=== PATIENT | female | born 1970 | race Caucasian/White ===

== ENCOUNTER 2016-08-18 10:28 | Day surgery (SDC) | payer BC ==
[2016-08-15 12:20] VITALS: BMI 24.2
[~2016-08-18] VITALS: Ht 167.6 cm; Wt 68.1 kg
[2016-08-18] VITALS (14 sets, daily range): BP systolic 100–119; BP diastolic 49–61; PULSE 55–86; RESP 16–20; Ht 167.6 cm; Wt 68.1 kg
--- NOTE | 2016-08-18 09:38 | PREOPHP ---
DATE OF ADMISSION: 08/18/2016 HISTORY OF PRESENT ILLNESS: The patient is a 45-year-old 4, para 2, AB 2, with menorrhagia and submucosal fibroid or polyp seen on ultrasound. Here for resection of the fibroid. We did an endometrial biopsy a year ago which showed benign tissue. The patient has surgical menopause as she had her ovaries removed and is on estrogen; however, we have tried multiple different progesterone and she has been unable to take any of them without causing bleeding. We were hoping that removal of the fibroid will provide resolution of the irregular bleeding. The patient has had the fibroid for a couple of years but whenever it is seen on a scan done for her orthopedic issues the person reading the scan scares her telling her she has a tumor that needs to be taken care of. PAST SURGICAL HISTORY: Surgical menopause and she had a fall in 2011 downstairs at work with multiple surgeries and pain involving her right foot and ankle since then. PAST SURGICAL HISTORY: Two previous C-sections, two D and C, laparoscopic BSO in 2012 for the right dermoid and then the multiple right foot and ankle surgeries after her fall. ALLERGIES: NO KNOWN DRUG ALLERGY. PHYSICAL EXAMINATION: VITAL SIGNS: Patient is 66 inches tall, 150 pounds, blood pressure 118/80. HEART: Regular rate and rhythm. LUNGS: Clear to auscultation. ABDOMEN: Soft, nontender. PELVIC: Uterus normal size. Adnexa, no masses palpable. Ovaries absent. MEDICATIONS: She is on: 1. Dexilant. 2. Benadryl. 3. Estradiol 0.1 patch that she changes twice a week. 4. Lidoderm patch. 5. History of pain medication for significant pain issues due to her fall OxyContin. 6. [place]. ASSESSMENT: Postmenopausal menorrhagia with progesterone, submucosal fibroid. PLAN: Hysteroscopy with resection of submucosal fibroid. Dictated By: NICOLE HANEY/JOSE Conf#: [id number] DID#: [id number] MTDD
[~2016-08-18 10:28] MED LIST: LACTATED RINGER'S 1,000 ML IV SCH; ONDANSETRON 4 MG INJ ONE; TOPI25TA38 PO
[2016-08-18 11:48] LABS: BASOPHILS % 0.6 % (0.0-2.0); EOSINOPHILS # 0.1 10^3/ul (0.0-0.5); EOSINOPHILS % 1.8 % (0.0-7.0); HEMATOCRIT 44.7 % (37.0-47.0); HEMOGLOBIN 15.1 g/dl (12.0-16.0); LYMPHOCYTES # 1.8 10^3/ul (0.8-2.9); LYMPHOCYTES % 30.9 % (15.0-51.0); MEAN CORPUSCULAR HEMOGLOBIN 29.2 pg (29.0-33.0); MEAN CORPUSCULAR HGB CONC 33.9 g/dl (32.0-37.0); MEAN CORPUSCULAR VOLUME 86.2 fl (82.0-101.0); MEAN PLATELET VOLUME 8.5 fl (7.4-10.4); MONOCYTE # 0.4 10^3/ul (0.3-0.9); MONOCYTES % 6.4 % (0.0-11.0); NEUTROPHIL # 3.6 10^3/ul (1.6-7.5); NEUTROPHILS % 60.3 % (39.0-77.0); PLATELET COUNT 302 10^3/UL (140-440); RED BLOOD COUNT 5.19 10^6/ul (4.20-5.40); RED CELL DISTRIBUTION WIDTH 13.9 % (11.5-14.5)
[2016-08-18] MEDS ORDERED: PROPOFOL 40 ML ONE (11:50)
[2016-08-18] MEDS ORDERED: LIDOCAINE 2% (SDV) 5 ML INJ ONE (11:50)
[2016-08-18 11:53] LABS: INR 0.91; PROTIME 12.3 Sec (12.2-14.2)
[2016-08-18] MEDS ORDERED: FENTAnyl 50 MCG/ML VIAL ONE ×3 (11:53→14:36)
[2016-08-18] MEDS ORDERED: MIDAZOLAM 1 MG/ML 2 ML INJ ONE ×2 (11:53→13:28)
[2016-08-18 11:54] LABS: PARTIAL THROMBOPLASTIN TIME 30.7 Sec (25.0-35.0)
[2016-08-18] MEDS ORDERED: OXYC-431 (12:01)
[2016-08-18] MEDS ORDERED: ESTR-32 (12:01)
[2016-08-18] MEDS ORDERED: PANT40TA4 (12:01)
[2016-08-18] MEDS ORDERED: OXYC40TA26 (12:01)
[2016-08-18] MEDS ORDERED: OXYC30TA64 (12:01)
[2016-08-18 12:03] LABS: CONDITION 1
[2016-08-18] MEDS ORDERED: MEPERIDINE 25 MG INJ IV PRN (12:30)
[2016-08-18] MEDS ORDERED: ONDANSETRON 4 MG INJ IV PRN (12:30)
[2016-08-18] MEDS ORDERED: FENTAnyl 50 MCG/ML VIAL IV PRN ×3 (12:30)
[2016-08-18] MEDS ORDERED: LABETALOL HCL 20MG INJ IV PRN (12:30)
[2016-08-18] MEDS ORDERED: DEXAMETHASONE 4 MG/ML 1 ML INJ ONE (13:59)
[2016-08-18] MEDS ORDERED: PROPOFOL 20 ML ONE ×3 (14:44→15:00)
[2016-08-18] MEDS ORDERED: OXYCODONE/ACETAMINOPHEN (5/325) TAB ONE (16:00)
[2016-08-18] MEDS ORDERED: DIPHENHYDRAMINE 50 MG INJ ONE (16:00)
[2016-08-18] MEDS ORDERED: OXYCODONE/ACETAMINOPHEN (5/325) TAB PO ONE (16:30)
[2016-08-18] MEDS ORDERED: DIPHENHYDRAMINE 50 MG INJ IV ONE (16:30)
--- NOTE | 2016-08-20 01:50 | OPR ---
DATE OF OPERATION: 08/18/2016 PREOPERATIVE DIAGNOSIS: Submucosal fibroid. POSTOPERATIVE DIAGNOSIS: Submucosal fibroid. PROCEDURE: Hysteroscopy with resection of fibroid and a D and C. SURGEON: Ankit Bonds MD ANESTHESIOLOGIST: Dr. Rothman ANESTHESIA: General. ESTIMATED BLOOD LOSS: Less than 10 mL COMPLICATIONS: None. PATHOLOGY: The fibroid specimen in pieces and endometrial curettings. PROCEDURE: The patient was brought to the operating room, placed on the operating room table and was placed under general anesthesia. Before she was put to asleep, her legs were placed in Phil stirrups with her telling us what is a comfortable position for her so her legs were not open too much due to significant orthopedic issues patient has with her leg and hip. Then patient was placed under general anesthesia. Perineum and vagina were cleaned, prepped and draped. She had in-and-out catheterization in the OR. Weighted speculum was then placed. Cervix was grasped with a tenaculum. Cervix was dilated with Hegar dilators, and it took a bit to find the direction of cervical os. It went to the left, down and then back up. Then placed the hysteroscope. Initiated fluid and initially had a little trouble with orientation of the camera but sorted that out, was able to visualize the endometrial cavity with the fibroid up in the left upper corner by the tubal ostia, and then the rest of the cavity had some fluffy material in it. No other specific fibroids or polyps or lesions seen. Initiated the resection process by placing the resectoscope next to the fibroid and used a pedal to initiate the grabbing/ removal process. In between had to withdraw the resectoscope into the body of the hysteroscope while irrigating in order to maintain visualization. During the resection process when the water would get cloudy, irrigation would clarify. The process was challenging because the fibroid itself was up in the left hand corner so not easily accessible and had to constantly switch back and forth between the irrigation process and the actual procedure multiple times. Eventually the bulk of the fibroid was removed down until the tissue was smooth with the uterus. There was a little bit of tissue remaining up in the corner as it was around the corner and lying flat on the floor of the uterus and was just not able to get there. When I felt the bulk of the tissue was removed and that area was as flat as possible, then stopped that procedure. Did cauterize 1 area when there was a little bit of bleeding. Removed the hysteroscope and proceeded with a D and C to scrape all of the lateral porter. There was not that much tissue that was removed, but just wanted to make sure she would not have any irregular bleeding any time in the future and to provide another good sampling of the uterine cavity. Procedure was then terminated. Water was evacuated. Total water during the procedure 1250 mL. Two specimens, the fibroid fragments and the D and C, were sent separately to pathology for evaluation. The patient's perineum was then cleaned. Her legs were then brought into the full supine position. She was awakened from general anesthesia , and physically she tolerated the procedure well. Her hips were not so happy being in any position, and patient needed pain medication almost immediately upon awakening, more due to her orthopedic issues than the procedure. Dictated By: ANKIT HANEY/JOSE Conf#: [id number] DID#: [id number] MTDPavithra
== END 2016-08-18 17:24 | disposition home or self-care (01) ==
LOC: SDS 10:28
PROVIDERS: ATTEND Obstetrics & Gynecology
DX: D25.0 Submucous leiomyoma of uterus (principal)
CPT/HCPCS: 58558; 84703; 85025; 85610; 85730; J1100; J1200; J2175; J2250; J2405; J3010

== ENCOUNTER 2017-02-19 05:49 | Inpatient (IN) | payer BC, OTHER ==
--- NOTE | 2017-02-13 07:34 | PREOPHP ---
DATE OF ADMISSION: 02/19/2017 MEDICAL HISTORY AND PHYSICAL. The patient is to have surgery with Dr. Nick Lewis on 02/19/2017. REQUESTING PHYSICIAN: Consultation requested by Dr. Nick Lewis for medical evaluation and clearance of a 46-year-old woman about to undergo surgery. Thank you Dr. Lewis for allowing us participate in the care of this patient. HISTORY OF PRESENT ILLNESS: Linda Thurman is a 46-year-old woman who has had issues with her right hip, and had undergone arthroscopic surgery on that hip approximately a year ago. She is still having issues and is currently being admitted for a total hip replacement of the right hip. PAST SURGICAL HISTORY: Includes 2 sections, right ankle surgery x2. Also had uterine fibroid surgery, and had ovarian surgery in the past. Also has had right and left issues in terms of her ovaries. She has fractured her left arm. She has had no medical hospitalizations; however, and has been doing relatively well from a medical standpoint other than her chronic pain secondary to her hip problems. MEDICATIONS: Include oxycodone 30 mg t.i.d., muscle relaxer which is occasional use, as well as Percocet 10/325 periodically, and estrogen patch, as well as Protonix 40 mg daily. ALLERGIES: DILAUDID AND OTHER OPIATES. AND AGAIN HER HEALTH OTHER THAN HER BACK PAIN HAS BEEN RELATIVELY WELL. SOCIAL HISTORY: The patient is and has 2 sons. She smokes about a pack of cigarettes a day. She drinks alcohol socially. She does not drink coffee. She usually has no difficulty sleeping at night and currently is not working. FAMILY HISTORY: Father is alive in his late 60s, he has diabetes mellitus type 2. Mother unknown. One sister is living and well. One sister of suicide. There is a family history of diabetes, heart cancer and hypertension. No strokes to her knowledge. REVIEW OF SYSTEMS: HEENT: Periodic headaches, probably tension headaches. CARDIORESPIRATORY: Denies any chest pain, shortness of breath. GASTROINTESTINAL: No melena or hematemesis; however, does have signs of gastroesophageal reflux disease acid related symptoms. GENITOURINARY: No urgency or frequency. GYNECOLOGIC: Postmenopausal. Up-to-date with her apple checker. MUSCULOSKELETAL: Positive for right hip pain. NEUROPSYCHIATRIC: Unremarkable. CONSTITUTIONAL: General health as above. PHYSICAL EXAMINATION: VITAL SIGNS: Blood pressure was 122/80, pulse was 80 and regular, respirations were 18, temperature of 98.4, height 66 inches, weight 150 pounds. GENERAL APPEARANCE: The patient was noted to be a well-developed and well-nourished female, alert and cooperative, in no apparent acute distress, oriented to time, place and person. HEENT: Head was atraumatic. Eyes: Pupils were equal and reactive to light and accommodation. Fundi were benign. Tympanic membranes were unremarkable. Nose was negative. Mouth was unremarkable. Fair oral hygiene was present. NECK: Supple without any rigidity. Trachea is midline. Thyroid was within normal limits. Neck veins were flat. Carotid pulses were equal. No bruits were heard. BACK: Back exam was unremarkable. CHEST: Chest was symmetrical. Breast and axillary exam did not reveal any masses. LUNGS: Clear to percussion and auscultation. CARDIAC: On exam of the heart PMI is in the fifth intercostal space at the midclavicular line. Regular sinus rhythm was noted. No significant murmurs, rubs or gallops being elicited. ABDOMEN: Soft. Good bowel sounds were noted. No significant organomegaly, masses or tenderness. GENITALIA: Normal female external genitalia. Pelvic and rectal exam up-to-date per apple checker. EXTREMITIES: Did not reveal any clubbing, edema or cyanosis. Peripheral pulses were physiologic. SKIN: Moist and warm without any eruptions. No gross lymphadenopathy was noted. NEUROLOGIC: Exam was grossly intact. IMPRESSION: 1. Degenerative joint disease right hip. 2. Menopausal syndrome. 3. Gastroesophageal reflux disease. 4. Stable health. DIAGNOSTICS: Review of laboratory and other data revealed the following: The patient's chemistry panel revealed normal electrolytes, glucose, BUN, creatinine, liver function tests, magnesium, iron, and a negative test. CBC, sedimentation rate, UA, PT and PTT were normal as well. The patient's EKG was normal as was her chest x-ray. DISCUSSION: Dr. Lewis, I see no contraindications to the patient undergoing current proposed surgery under the desired form of anesthesia and I feel she is a suitable candidate at this particular point in time. We will be more than happy to follow her along with you during her stay at [facility]. Thank you again Dr. Lewis for allowing us participate in the care of this patient. Dictated By: Zeke Solares MD /mauricio/reid /Document#: [id number]
[2017-02-19] VITALS (32 sets, daily range): BP systolic 90–115; BP diastolic 40–76; PULSE 66–96; RESP 11–24; Ht 167.6 cm; Wt 68.0 kg
[~2017-02-19] VITALS: Ht 167.6 cm; Wt 68.0 kg
[~2017-02-19 05:49] MED LIST changes: +ESTR-32; -LACTATED RINGER'S 1,000 ML IV SCH; -ONDANSETRON 4 MG INJ ONE; +OXYC-431; +OXYC30TA64; +OXYC40TA26; +PANT40TA4
[2017-02-19] MEDS ORDERED: CEFAZOLIN 2 GM/50 ML (PMX) 50 ML IVPB ONE (06:30)
[2017-02-19] MEDS ORDERED: DEXAMETHASONE 1 MG TAB PO ONE (06:30)
[2017-02-19] MEDS ORDERED: LACTATED RINGER'S 1,000 ML IV* SCH (06:30)
[2017-02-19] MEDS: GABAPENTIN 300 MG CAP PO ONE ×2 (06:41→06:43)
--- NOTE | 2017-02-19 06:48 | HPN ---
Date/Time of Note Date/Time of Note DATE: 02/19/17 TIME: 06:48 Interval H&P Admission Note Pt. seen H&P reviewed: No system changes ANDREA THORNE MD Feb 19, 2017 06:48
[2017-02-19] MEDS ORDERED: CA CHLORIDE 10% 10 ML SYRINGE ONE (06:52)
[2017-02-19] MEDS ORDERED: THROMBIN 5000 UNIT VIAL ONE (06:52)
[2017-02-19] MEDS ORDERED: POLYMYXIN/BACITRACIN 1L IRRIG ONE (06:52)
[2017-02-19] MEDS ORDERED: TRANEXAMIC ACID 1,000 MG in SOD CHLORIDE 0.9% 100 ML IVPB ONE (07:00)
[2017-02-19] MEDS ORDERED: SOD CHLORIDE 0.9% 100 ML, TRANEXAMIC ACID 3,000 MG IRR ONE ×2 (07:00)
[2017-02-19] MEDS: BUPIVACAINE 0.5% (SDV) 30 ML, morphine SULFATE (PF) 8 MG, EPINEPHrine 0.3 MG, KETOROLAC... IRR SCH ×14 (07:00→08:13)
[2017-02-19] MEDS ORDERED: traMADol 50 MG TAB PO ONE (07:00)
[2017-02-19] MEDS ORDERED: morphine SULFATE/PF (10 MG/10 ML) INJ ONE (07:04)
[2017-02-19] MEDS ORDERED: MIDAZOLAM 1 MG/ML 2 ML INJ ONE ×2 (07:04→07:37)
[2017-02-19] MEDS ORDERED: OXYC30TA PO (07:10)
[2017-02-19] MEDS ORDERED: FAMOTIDINE 20 MG INJ ONE (08:25)
[2017-02-19] MEDS ORDERED: PHENYLephrine (100 MCG/ML) 5ML SYG ONE (08:25)
[2017-02-19] MEDS ORDERED: ONDANSETRON 4 MG INJ ONE (08:25)
[2017-02-19] MEDS ORDERED: PROPOFOL 100 ML ONE (08:25)
[2017-02-19] MEDS ORDERED: LIDOCAINE 2% (SDV) 5 ML INJ ONE (08:25)
[2017-02-19] MEDS ORDERED: DEXAMETHASONE 4 MG/ML 1 ML INJ ONE (08:25)
[2017-02-19] MEDS ORDERED: FENTAnyl 50 MCG/ML VIAL IV PRN ×3 (08:30)
[2017-02-19] MEDS ORDERED: NALOXONE (0.4 MG/ML) INJ IV PRN (08:30)
[2017-02-19] MEDS ORDERED: TRIMETHOBENZAMIDE 100 MG/ML VIAL IM PRN (08:30)
[2017-02-19] MEDS ORDERED: PROCHLORPERAZINE 10 MG INJ IV PRN (08:30)
[2017-02-19] MEDS ORDERED: DIPHENHYDRAMINE 50 MG INJ IV PRN ×3 (08:30→09:00)
[2017-02-19] MEDS ORDERED: MEPERIDINE 25 MG INJ IV PRN (08:30)
[2017-02-19] MEDS ORDERED: ONDANSETRON 4 MG INJ IV PRN ×3 (08:30→09:00)
[2017-02-19] MEDS ORDERED: CEFAZOLIN 1 GM INJ ONE (08:49)
[2017-02-19] MEDS: LACTATED RINGER'S 1,000 ML IV SCH ×3 (08:58→20:32)
[2017-02-19] MEDS: SENNA/DOCUSATE NA (8.6MG/50MG) TAB PO SCH ×2 (09:00→22:25)
[2017-02-19] MEDS ORDERED: OXYCODONE/ACETAMINOPHEN (5/325) TAB PO PRN (09:00)
[2017-02-19] MEDS: TOPIRAMATE 25 MG TAB PO SCH ×2 (09:00→12:31)
[2017-02-19] MEDS ORDERED: TRANEXAMIC ACID 1,000 MG in SOD CHLORIDE 0.9% 100 ML IV ONE (09:00)
[2017-02-19] MEDS ORDERED: MAGNESIUM HYDROXIDE 30ML CUP PO PRN (09:00)
[2017-02-19] MEDS ORDERED: morphine 4 MG/ML VIAL IV PRN (09:00)
[2017-02-19] MEDS ORDERED: BETHANECHOL 25 MG TAB PO PRN (09:00)
[2017-02-19] MEDS ORDERED: morphine 2 MG INJ IV PRN (09:00)
[2017-02-19] MEDS ORDERED: ACETAMINOPHEN 500 MG TAB PO PRN (09:00)
[2017-02-19] MEDS ORDERED: ZOLPIDEM 5 MG TAB PO PRN (09:00)
--- NOTE | 2017-02-19 09:07 | OPR ---
Date/Time of Note Date/Time of Note DATE: 02/19/17 TIME: 09:04 Operative Report Procedure Date: Feb 19, 2017 Preoperative Diagnosis Posttraumatic arthritis status post hip arthroscopy, right hip Postoperative Diagnosis Right hip status post hip arthroscopy with posttraumatic arthritis Operation Performed Right total hip arthroplasty following hip arthroscopy Surgeon: ANDREA THORNE MD Quality Assurance Test Program Manager: CORINE THOMPSON MD Anesthesia Type: general Estimated Blood Loss: 150 - 200 ml's Transfusion Required: no Complications: no Pt Condition Post Procedure: stable Disposition: PACU Procedure Description FRIEND OF THE COURT SURGEON: [Thai Thompson MD] was asked to be present at my request as a result of the complexity associated with this procedure including positioning of the extremity, positioning of the instrumentation and protection of the neurovascular structures. In my opinion, the assistance offered by a surgical services director is insufficient and [Dr. Thompson] should be compensated for his time. PROCEDURE IN DETAIL: Following the administration of general endotracheal anesthesia supplemented with a spinal anesthetic, the patient was placed in the supine position. The bilateral lower extremities were then prepped and draped in the usual sterile fashion. A paint preparer radiograph was obtained for preliminary limb length and femoral size as well as acetabular size. A lateral incision was then made exposing the tensor fascia the fascia was incised the tensor was retracted laterally and the vessels were cauterized. The anterior capsule was then identified and prepared. Significant scar tissue was encountered from the prior hip arthroscopy. A capsulectomy was then performed and the femoral head was then evaluated. Severe arthritic changes were noted. A femoral head cut was then made in the appropriate degree of version and inclination. The acetabulum was then exposed and a capsulectomy and labrectomy were completed. The central portion was then entered and serially reamed up to the 49 mm size. A Depuy Ladysmith cup which is 50 mm in size with a standard liner was then fit into position with solid fixation. A 25 mm screw was used for additional fixation. Attention was then directed to the femur, the femur was exposed and prepared. The canal was entered and serially reamed up to the 10 mm size. A 10 mm Depuy [place] stem was then inserted with solid fixation. A standard femoral head, which was ceramic was then inserted. The leg was taken through full range of motion with no evident instability. In addition, radiographs revealed excellent position with reproduction of the limb lengths within a millimeter. The wound was irrigated thoroughly. The wound was then closed in layers and a Prenio for the final cover. This was watertight. Estimated blood loss was procedure was [200] cc. Postoperative radiographs will be obtained in the recovery room. The patient was transported in standard fashion to recovery room. ANDREA THORNE MD Feb 19, 2017 09:07
--- NOTE | 2017-02-19 09:08 | PDOCDIS ---
Discharge Instructions DIAGNOSIS Discharge Diagnosis Posttraumatic arthritis, right hip CONDITION Patient Condition: Good HOME CARE INSTRUCTIONS: Diet Instructions: Regular ACTIVITY: Activity Restrictions: Slowly Increase Activity Keep Limb Elevated Bathing Restrictions: Shower FOLLOW UP/APPOINTMENTS Follow-up Plan 2 weeks SCHOOL/WORK RELEASE May return to School/Work with: With Restrictions School/Work Release Comment: No hip extension for 6 weeks ANDREA THORNE MD Feb 19, 2017 09:08
[2017-02-19] MEDS: CEFAZOLIN 1 GM/50 ML (PMX) 50 ML IVPB SCH ×2 (09:49→17:25)
[2017-02-19] MEDS ORDERED: OXYCODONE/ACETAMINOPHEN (10/325) TAB PO ONE (10:00)
[2017-02-19] MEDS ORDERED: MIDAZOLAM 1 MG/ML 2 ML INJ IV ONE (10:00)
--- NOTE | 2017-02-19 10:09 | RADRPT ---
PROCEDURE: XR Pelvis. CLINICAL INDICATION: Status post right hip replacement. TECHNIQUE: Single AP view of the pelvis. COMPARISON: No prior studies are available for comparison. FINDINGS: Right hip replacement is identified. The prosthetic components are in appropriate position and alig nment. The osseous structures are intact. No destructive bony lesions are observed. The left hip joint is grossly unremarkable. Flaherty catheter is identified over the lower pelvis. Soft tissue air over the right hip is procedural in nature.. IMPRESSION: Right hip replacement. Prosthetic components are in appropriate position and alignment. RPTAT: AA .Michael Albarado MD, Date Time Electronically viewed and signed by .Michael Albarado MD, on 02/19/2017 10:09 .P/
--- NOTE | 2017-02-19 11:29 | RADRPT ---
PROCEDURE: X-ray fluoroscopy guidance CLINICAL INDICATION: Right hip replacement, fluoroscopic guidance TECHNIQUE: Fluoroscopic guidance was utilized for an intraoperative procedure. COMPARISON: None available FINDINGS: Fluoroscopic guidance was utilized for and intraoperative procedure. 38 seconds of fluoroscopy time was utilized for the procedure. 27 x-ray images were obtained during the procedure in progress. Abril l images demonstrate a right hip replacement. Prosthetic components appear in appropriate position and alignment. IMPRESSION: X-ray fluoroscopic guidance utilized for intraoperative procedure. Right hip replacement with prosthetic components in appropriate position and alignment. Please see procedure note for details. RPTAT: AA .Michael Albarado MD, Date Time Electronically viewed and signed by .Michael Albarado MD, on 02/19/2017 11:29 .P/
[2017-02-19] MEDS: OXYCODONE/ACETAMINOPHEN (10/325) TAB PO PRN ×3 (12:10→19:45)
[2017-02-19] MEDS: KETOROLAC 15 MG INJ IV PRN ×2 (12:30→19:45)
[2017-02-19] MEDS: DEXAMETHASONE 2 MG TAB PO SCH ×2 (12:34→17:25)
[2017-02-19] MEDS ORDERED: KETOROLAC 15 MG INJ IV STA (16:15)
[2017-02-19] MEDS: oxyCODONE (CR) 10 MG TAB [oxyCONTIN] PO SCH ×2 (16:50→22:26)
--- NOTE | 2017-02-19 17:27 | CONS ---
Date/Time of Note Date/Time of Note DATE: 02/19/17 TIME: 17:19 Consult Date/Type/Reason Admit Date/Time Feb 19, 2017 at 05:49 Initial Consult Date 02/05/2017 Type of Consultation: internal medicine Reason for Consultation pre-op medical clearance Ordering Provider: ANDREA THORNE MD Subjective alert post op in room complaining of pain otherwise is alert and well Objective Vital Signs Date Time Temp Pulse Resp B/P Pulse Ox O2 Delivery O2 Flow Rate FiO2 02/19/17 14:00 97.5 64 18 100/53 98 02/19/17 13:45 Room Air 02/19/17 10:48 2.0 Exam vss heent neg lungs clear heart regular rhythm abdomen soft Results/Medications Medications Current Medications Lactated Ringer's (Lr) 1,000 ml @ 20 mls/hr Q24H IV* Last administered on 02/19 06:30; Admin Dose 20 MLS/HR; Start 02/19/17 at 06:30; Stop 02/21/17 at 08: 29 Diphenhydramine HCl (Benadryl) 25 mg Q4H PRN IV PRURITUS; Start 02/19/17 at 08: 30; Stop 02/19/17 at 23:00 Ondansetron HCl (Zofran Inj) 4 mg Q6H PRN IV NAUSEA AND/OR VOMITING; Start 04/28 at 08:30; Stop 02/19/17 at 23:00 Trimethobenzamide HCl (Tigan) 200 mg Q6H PRN IM NAUSEA AND/OR VOMITING; Start 02/19/17 at 08:30; Stop 02/19/17 at 23:00 Naloxone HCl (Narcan) 0.2 mg Q2M PRN IV FOR RESP RATE 8 OR LESS; Start at 08:30; Stop 02/19/17 at 23:00 Oxycodone/ Acetaminophen (Endocet (10/ 325)) 1 tab Q4H PRN PO PAIN Last administered on 02/19/17 15:56; Admin Dose 1 TAB; Start 02/19/17 at 08:30; Stop 02/19/17 at 23:00 Oxycodone HCl (Roxicodone) 30 mg TID PRN PO PAIN; Start 02/19/17 at 09:00 Topiramate 50 mg 50 mg TID PO Last administered on 02/19/17 12:31; Admin Dose 50 MG; Start 02/19/17 at 09:00 Cefazolin Sodium (Ancef 1 Gm/50 ml (Pmx)) 50 ml @ 100 mls/hr Q8H IVPB Last administered on 02/19/17 09:49; Admin Dose 100 MLS/HR; Start 02/19/17 at 09:00 ; Stop 02/20/17 at 01:29 Senna/Docusate Sodium (Senokot-S) 1 tab BID PO ; Start 02/19/17 at 09:00 Simethicone (Mylicon) 80 mg TID PRN PO DISTENSION/GAS/BLOATING; Start 02/19/17 at 09:00 Magnesium Hydroxide (Milk Of Mag) 30 ml BID PRN PO CONSTIPATION; Start at 09:00 Acetaminophen (Tylenol Tab) 1,000 mg Q4H PRN PO TEMP GREATER THAN 100.4F; Start 02/19/17 at 09:00 Dexamethasone (Decadron) 2 mg Q6 PO Last administered on 02/19/17 12:34; Admin Dose 2 MG; Start 02/19/17 at 12:00; Stop 02/20/17 at 06:01 Oxycodone/ Acetaminophen (Percocet (5/ 325)) 1 tab Q4H PRN PO PAIN LEVEL 1-5; Start 02/19/17 at 09:00 Morphine Sulfate (morphine) 2 mg Q2H PRN IV PAIN LEVEL 1-5; Start 02/19/17 at 09:00 Morphine Sulfate (morphine) 4 mg Q4H PRN IV PAIN LEVEL 6-10; Start 02/19/17 at 09:00 Ketorolac Tromethamine (Toradol) 15 mg Q6H PRN IV PAIN Last administered on 12:30; Admin Dose 15 MG; Start 02/19/17 at 09:00; Stop 02/22/17 at 08:59 Ondansetron HCl (Zofran Inj) 4 mg Q6H PRN IV NAUSEA AND/OR VOMITING; Start 04/28 at 09:00 Diphenhydramine HCl (Benadryl) 25 mg Q6H PRN IV PRURITUS; Start 02/19/17 at 09: 00 Aspirin 81 mg 81 mg DAILY PO ; Start 02/20/17 at 09:00 Lactated Ringer's (Lr) 1,000 ml @ 100 mls/hr Q10H IV ; Start 02/19/17 at 08:58 Oxycodone HCl (Oxycontin) 30 mg TID PO Last administered on 02/19/17t 16:50; Admin Dose 30 MG; Start 02/19/17 at 16:30 Assessment/Plan Chief Complaint/Hosp Course post op right hip surgery for djd so far medically stable Problems: Additional Assessment/Plan will follow tith you has a nicotine patch on at this time.--thank you MATHEW Carty MD Feb 19, 2017 17:27
[2017-02-20] MEDS: oxyCODONE 15 MG TAB PO PRN ×3 (00:01→14:16)
[2017-02-20] MEDS: DEXAMETHASONE 2 MG TAB PO SCH ×2 (00:01→05:48)
[2017-02-20] MEDS: KETOROLAC 15 MG INJ IV PRN (01:15)
[2017-02-20] MEDS: CEFAZOLIN 1 GM/50 ML (PMX) 50 ML IVPB SCH (01:19)
[2017-02-20 02:00] VITALS: BP 105/51; RESP 18
[2017-02-20 05:58] LABS: BASOPHILS % 0.1 % (0.0-2.0); HEMATOCRIT 33.6 % (37.0-47.0); HEMOGLOBIN 10.9 g/dl (12.0-16.0); LYMPHOCYTES # 1.3 10^3/ul (0.8-2.9); LYMPHOCYTES % 6.4 % (15.0-51.0); MEAN CORPUSCULAR HEMOGLOBIN 28.9 pg (29.0-33.0); MEAN CORPUSCULAR HGB CONC 32.4 g/dl (32.0-37.0); MEAN CORPUSCULAR VOLUME 89.1 fl (82.0-101.0); MEAN PLATELET VOLUME 10.1 fl (7.4-10.4); MONOCYTE # 1.2 10^3/ul (0.3-0.9); NEUTROPHIL # 16.9 10^3/ul (1.6-7.5); NEUTROPHILS % 86.7 % (39.0-77.0); PLATELET COUNT 298 10^3/UL (140-415); RED BLOOD COUNT 3.77 10^6/ul (4.20-5.40); RED CELL DISTRIBUTION WIDTH 13.5 % (11.5-14.5); WHITE BLOOD COUNT 19.5 10^3/ul (4.8-10.8)
[2017-02-20] MEDS ORDERED: PANTOPRAZOLE (EC) 40 MG TAB PO SCH (06:00)
--- NOTE | 2017-02-20 06:41 | PN ---
Date/Time of Note Date/Time of Note DATE: 02/20/17 TIME: 06:40 24 hour Interval Summary Patient is awake and alert with no complaints at this time. Her pain level is comfortable. Physical Exam Physical examination: Her wound is clean and dry. She is neurologically intact. She has no signs of DVT. Vital Signs Date Time Temp Pulse Resp B/P Pulse Ox O2 Delivery O2 Flow Rate FiO2 02/20/17 02:00 98.5 71 18 105/51 99 02/19/17 13:45 Room Air 02/19/17 10:48 2.0 Intake and Output 02/19/17 02/19/17 02/20/17 15:00 23:00 07:00 Intake Total 2170 ml 1450 ml 2150 ml Output Total 350 ml 2000 ml 3000 ml Balance 1820 ml -550 ml -850 ml VTE Prophylaxis VTE Prophylaxis Intervention: anti-embolic stocking Lines/Catheters IV Catheter Type: Saline Lock Flaherty in Place: No Results Results 24hrs Laboratory Tests Test 02/20/17 04:44 White Blood Count Pending Red Blood Count Pending Hemoglobin Pending Hematocrit Pending Mean Corpuscular Volume Pending Mean Corpuscular Hemoglobin Pending Mean Corpuscular Hemoglobin Concent Pending Red Cell Distribution Width Pending Platelet Count Pending Mean Platelet Volume Pending Assessment/Plan Chief Complaint/Hosp Course post op right hip surgery for djd so far medically stable Problems: Assessment/Plan Assessment: Status post total hip replacement Plan: Patient will be cleared by physical therapy later this morning with this afternoon. She will follow-up in 2 weeks in the office. Medications Medications Home Meds Reported Medications Oxycodone Hcl* (IR) (Oxycodone Hcl*) 30 Mg Tablet, 30 MG PO TID Y for PAIN, TAB 02/19/17 Pantoprazole* (Pantoprazole*) 40 Mg Tablet.dr, #60 08/18/16 Estradiol (Estradiol) 1 Each Patch.tdsw, #8 08/18/16 Oxycodone HCl/Acetaminophen (Oxycodone-Acetaminophen 10-325) 1 Each Tablet, QID , #120 08/18/16 Topiramate* (Topamax*) 25 Mg Tablet, 50 MG PO TID 05/13/13 Discontinued Reported Medications Oxycodone Hcl* (Oxycontin*) 30 Mg Tab.sr.12h, #90 08/18/16 Oxycodone Hcl* (Oxycontin*) 40 Mg Tab.er.12h, #60 08/18/16 ANDREA THORNE MD Feb 20, 2017 06:41
--- NOTE | 2017-02-20 06:42 | DS ---
Date/Time of Note Date/Time of Note DATE: 02/20/17 TIME: 06:41 Discharge Summary Admission/Discharge Info Admit Date/Time Feb 19, 2017 at 05:49 Discharge Date/Time February 20, 2017 following physical therapy clearance Discharge Diagnosis Posttraumatic arthritis, right hip Patient Condition: Good Procedures Right total hip arthroplasty Hx of Present Illness Pain and stiffness, chronic right hip Hospital Course Patient was admitted and underwent an uncomplicated procedure. Postoperative day #1 she was afebrile, wound is clean and dry to be followed up in the office in 2 weeks Home Meds Reported Medications Oxycodone Hcl* (IR) (Oxycodone Hcl*) 30 Mg Tablet, 30 MG PO TID Y for PAIN, TAB 02/19/17 Pantoprazole* (Pantoprazole*) 40 Mg Tablet.dr, #60 08/18/16 Estradiol (Estradiol) 1 Each Patch.tdsw, #8 08/18/16 Oxycodone HCl/Acetaminophen (Oxycodone-Acetaminophen 10-325) 1 Each Tablet, QID , #120 08/18/16 Topiramate* (Topamax*) 25 Mg Tablet, 50 MG PO TID 05/13/13 Discontinued Reported Medications Oxycodone Hcl* (Oxycontin*) 30 Mg Tab.sr.12h, #90 08/18/16 Oxycodone Hcl* (Oxycontin*) 40 Mg Tab.er.12h, #60 08/18/16 Follow-up Plan 2 weeks Primary Care Provider Care Physician No Primary Pending Labs Laboratory Tests Test 02/20/17 04:44 White Blood Count Pending Red Blood Count Pending Hemoglobin Pending Hematocrit Pending Mean Corpuscular Volume Pending Mean Corpuscular Hemoglobin Pending Mean Corpuscular Hemoglobin Concent Pending Red Cell Distribution Width Pending Platelet Count Pending Mean Platelet Volume Pending ANDREA THORNE MD Feb 20, 2017 06:42
--- NOTE | 2017-02-20 07:45 | CONS ---
Date/Time of Note Date/Time of Note DATE: 02/20/17 TIME: 07:39 Consult Date/Type/Reason Admit Date/Time Feb 19, 2017 at 05:49 Initial Consult Date 02/05/2017 Type of Consultation: internal medicine Reason for Consultation medical f/u Ordering Provider: ANDREA THORNE MD Subjective patient had a fair amount of pain overnight but would like to0 go home,feels she will do better there Objective Vital Signs Date Time Temp Pulse Resp B/P Pulse Ox O2 Delivery O2 Flow Rate FiO2 02/20/17 02:00 98.5 71 18 105/51 99 02/19/17 13:45 Room Air 02/19/17 10:48 2.0 Intake and Output 02/19/17 02/19/17 02/20/17 15:00 23:00 07:00 Intake Total 2170 ml 1450 ml 3150 ml Output Total 350 ml 2000 ml 3000 ml Balance 1820 ml -550 ml 150 ml Exam vss heent neg. lungs clear heart reg. rhythm abd. soft Results/Medications Result Diagram: 02/20/17 0444 Results 24 hrs Laboratory Tests Test 02/20/17 04:44 White Blood Count 19.5 #H Red Blood Count 3.77 #L Hemoglobin 10.9 #L Hematocrit 33.6 #L Mean Corpuscular Volume 89.1 Mean Corpuscular Hemoglobin 28.9 L Mean Corpuscular Hemoglobin Concent 32.4 Red Cell Distribution Width 13.5 Platelet Count 298 Mean Platelet Volume 10.1 Neutrophils % 86.7 H Lymphocytes % 6.4 L Monocytes % 6.0 Eosinophils % 0.0 Basophils % 0.1 Nucleated Red Blood Cells % 0.0 Neutrophils # 16.9 H Lymphocytes # 1.3 Monocytes # 1.2 H Eosinophils # 0.0 Basophils # 0.0 Nucleated Red Blood Cells # 0.0 Medications Current Medications Lactated Ringer's (Lr) 1,000 ml @ 20 mls/hr Q24H IV* Last administered on 02/19 06:30; Admin Dose 20 MLS/HR; Start 02/19/17 at 06:30; Stop 02/21/17 at 08: 29 Oxycodone HCl (Roxicodone) 30 mg TID PRN PO PAIN Last administered on 04:16; Admin Dose 30 MG; Start 02/19/17 at 09:00 Senna/Docusate Sodium (Senokot-S) 1 tab BID PO Last administered on 02/19/17 22:25; Admin Dose 1 TAB; Start 02/19/17 at 09:00 Simethicone (Mylicon) 80 mg TID PRN PO DISTENSION/GAS/BLOATING; Start 02/19/17 at 09:00 Magnesium Hydroxide (Milk Of Mag) 30 ml BID PRN PO CONSTIPATION; Start at 09:00 Acetaminophen (Tylenol Tab) 1,000 mg Q4H PRN PO TEMP GREATER THAN 100.4F; Start 02/19/17 at 09:00 Oxycodone/ Acetaminophen (Percocet (5/ 325)) 1 tab Q4H PRN PO PAIN LEVEL 1-5; Start 02/19/17 at 09:00 Morphine Sulfate (morphine) 2 mg Q2H PRN IV PAIN LEVEL 1-5; Start 02/19/17 at 09:00 Morphine Sulfate (morphine) 4 mg Q4H PRN IV PAIN LEVEL 6-10; Start 02/19/17 at 09:00 Ketorolac Tromethamine (Toradol) 15 mg Q6H PRN IV PAIN Last administered on 01:15; Admin Dose 15 MG; Start 02/19/17 at 09:00; Stop 02/22/17 at 08:59 Ondansetron HCl (Zofran Inj) 4 mg Q6H PRN IV NAUSEA AND/OR VOMITING; Start 04/28 at 09:00 Diphenhydramine HCl (Benadryl) 25 mg Q6H PRN IV PRURITUS; Start 02/19/17 at 09: 00 Aspirin 81 mg 81 mg DAILY PO ; Start 02/20/17 at 09:00 Lactated Ringer's (Lr) 1,000 ml @ 100 mls/hr Q10H IV Last administered on 02/19 20:32; Admin Dose 100 MLS/HR; Start 02/19/17 at 08:58 Oxycodone HCl (Oxycontin) 30 mg TID PO Last administered on 02/19/17 22:26; Admin Dose 30 MG; Start 02/19/17 at 16:30 Pantoprazole (Protonix Tab) 40 mg DAILY@06 PO Last administered on 8/11/17at 05 :48; Admin Dose 40 MG; Start 02/20/17 at 06:00 Assessment/Plan Chief Complaint/Hosp Course post op right hip surgery for djd so far medically stable Problems: Additional Assessment/Plan plan per wbc elevated probably 2nd to steroids will get c&s mof urine prior to discharge if patient going home today. thank you MATHEW Carty MD Feb 20, 2017 07:44
[2017-02-20 08:25] VITALS: BP 102/58; RESP 18
[2017-02-20] MEDS: SENNA/DOCUSATE NA (8.6MG/50MG) TAB PO SCH (08:46)
[2017-02-20] MEDS: oxyCODONE (CR) 10 MG TAB [oxyCONTIN] PO SCH ×2 (08:46→12:35)
[2017-02-20] MEDS ORDERED: ASPIRIN 81 MG TAB PO SCH (09:00)
[2017-02-20] MEDS: LACTATED RINGER'S 1,000 ML IV SCH (14:09)
== END 2017-02-20 16:04 | disposition home or self-care (01) | DRG 470 ==
LOC: REC 05:49 → MS1 10:37
PROVIDERS: ADMIT Orthopaedic Surgery; ATTEND Orthopaedic Surgery
PROC: 0SR904A Replacement of Right Hip Joint with Ceramic on Polyethylene Synthetic Substitute, Uncemented, Open Approach (ICD-10-PCS; principal; 2017-02-19 07:00)
DX: M16.51 Unilateral post-traumatic osteoarthritis, right hip (principal); F17.200 Nicotine dependence, unspecified, uncomplicated; Z78.0 Asymptomatic menopausal state; K21.9 Gastro-esophageal reflux disease without esophagitis
CPT/HCPCS: 72170; 73530; 85025; 86999; 87086; 97110; 97163; 97530; C1713; C1776; J0171; J0690; J0735; J1100; J1885; J2175; J2250; J2274; J2370; J2405; J3010; J3370; J7120

== ENCOUNTER 2019-02-03 08:21 | Day surgery (SDC) | payer BC, OTHER ==
[2019-01-31 17:53] VITALS: BMI 24.2
[2019-02-03] VITALS (13 sets, daily range): BP systolic 98–119; BP diastolic 53–62; PULSE 62–89; RESP 10–19; Ht 167.6 cm; Wt 67.6 kg
[~2019-02-03] VITALS: Ht 167.6 cm; Wt 67.6 kg
--- NOTE | 2019-02-03 05:30 | HPN ---
Date/Time of Note Date/Time of Note DATE: 02/03/19 TIME: 05:30 Interval H&P Admission Note Pt. seen H&P reviewed: No system changes ANDREA THORNE MD Feb 03, 2019 05:30
--- NOTE | 2019-02-03 05:33 | OPR ---
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 She has had a complete workup that has included a workup for infection and component malposition. At this point, she has failed several injections in the psoas tendon sheath and has recurrent pain. She is taken to surgery for release of the psoas tendon and evaluation of the total hip components. MARITIME PILOT SURGEON: Joshua Sexton MD was asked to be present at my request as a result of the significant surgical complexity associated with this procedure. Specifically, the arthroscopic resection of the femoral neck requires expert assistance with respect to the positioning of the arthroscope, which is a 70- degree arthroscope, while the surgeon exchanges instruments to perform the resection and labral repair. In my opinion, the assistance offered by a electro mechanical technician is not sufficient as a result of their lack of training with these instruments. Dr. Sexton should therefore be compensated for their time. PROCEDURE: Following the administration of general anesthesia supplemented with local anesthetic, the patient was placed in the supine position on the [employer] hip traction device. All prominences were properly padded, including the perineum and the ipsilateral arm. The right hip was prepped and draped in the usual sterile fashion. The leg was then placed in minimal traction. Under fluoroscopic guidance, two lateral portals were then developed directly over the lesser trochanter. Using both endoscopic and fluoroscopic guidance, the lesser trochanter was identified. Using a combination of the shaver and the ablator, the psoas tendon was then identified and carefully released until retraction was noted. In addition, a portion of the lesser trochanter was also resected. All neurovascular structures were protected throughout. The arthroscopic equipment was then removed, following thorough irrigation of the joint to assure that all bony debris was cleared. The wounds were closed using #4-0 Monocryl sutures, followed by a sterile dressing. The patient was then extubated and transported to the recovery room in stable condition, having tolerated the procedure well. ANDREA THORNE MD Feb 03, 2019 05:33
[~2019-02-03 08:21] MED LIST changes: +CEFAZOLIN 2 GM/50 ML (PMX) 50 ML IVPB ONE; +DEXAMETHASONE 2 MG TAB PO ONE; +ESTRD1 TD; +LACTATED RINGER'S 1,000 ML IV SCH; +OXYC-431 PO; +OXYC30TA PO; -OXYC30TA64; +OXYC30TA64 PO; -OXYC40TA26; +PANT40TA3 PO; +PROG100C5 PO; +TOPI25TA PO; -TOPI25TA38 PO
--- NOTE | 2019-02-03 11:47 | PREAC ---
Date/Time of Note Date/Time of Note DATE: 02/03/19 TIME: 11:45 Anesthesia Eval and Record Evaluation Time Pre-Procedure Interview DATE: 02/03/19 TIME: 11:45 Age 48 Sex female NPO: 8 hrs Preoperative diagnosis right psoas tendonitis Planned procedure right hip arthroscopy, psoas release, and debridement Past Medical History Past Medical History: Includes Recreational drugs: Other (chronic pain ) Surgery & Anesthesia Issues No known issue Meds Anticoagulation: No Beta Rayo within 24 hr: No Reason Beta Rayo not given: Pt. not on B-Rayo Reported Medications Pantoprazole* (Protonix*) 40 Mg Tablet.dr, 40 MG PO DAILY, TAB 02/03/19 Estradiol* (Estraderm* 0.1 mg/24 hr Patch) 1 Patch Patch, 1 PATCH TD TWICE WEEKLY, PATCH 02/03/19 Progesterone,Micronized* (Progesterone*) 100 Mg Capsule, 100 MG PO HS, CAP 02/03/19 Oxycodone HCl/Acetaminophen (Oxycodone-Acetaminophen 10-325) 1 Each Tablet, 1 EACH PO QID PRN for PAIN, TAB 02/03/19 Oxycodone Hcl* (Oxycontin*) 30 Mg Tab.sr.12h, 30 MG PO TID PRN for PAIN, TAB 02/03/19 Discontinued Reported Medications Oxycodone Hcl* (IR) (Oxycodone Hcl*) 30 Mg Tablet, 30 MG PO TID PRN for PAIN, TAB 02/19/17 Pantoprazole* (Pantoprazole*) 40 Mg Tablet.dr, #60 08/18/16 Estradiol (Estradiol) 1 Each Patch.tdsw, #8 08/18/16 Oxycodone HCl/Acetaminophen (Oxycodone-Acetaminophen 10-325) 1 Each Tablet, QID, #120 08/18/16 Topiramate* (Topamax*) 25 Mg Tablet, 50 MG PO TID 05/13/13 Current Medications Lactated Ringer's 1,000 ml @ 0 mls/hr Q0M IV Last administered on 02/03/19at 10:32; Admin Dose 25 MLS/HR; Start 02/03/19 at 06:00 Meds reviewed: Yes Allergies Coded Allergies: pregabalin (Verified Allergy, Intermediate, 02/03/19) buprenorphine (Verified Allergy, Unknown, BLISTERS, 02/03/19) gabapentin (Verified Allergy, Unknown, DIZZINESS/N& SEVER VOMITING, 02/03/19) topiramate (Verified Allergy, Unknown, 02/03/19) hydromorphone (Verified Adverse Reaction, Severe, ITCHING,N/V/THROAT SWELLING, 02/03/19) morphine (Verified Adverse Reaction, Severe, DOES NOT HELP PAIN, 02/03/19) PT SCREAMING Allergies Reviewed: Yes Labs/Studies Labs Reviewed: Reviewed by anesthesiologist test: Negative Pre-procedure Exam Last vitals Vital Signs Date Temp Pulse Resp B/P (MAP) Pulse Ox O2 O2 Flow FiO2 Time Delivery Rate 02/03/19 98.3 89 16 119/60 97 Room Air 10:40 (79) Airway: Adequate mouth opening, Adequate thyromental dist Mallampati: Mallampati II Teeth: Normal Lung: Normal Heart: Normal ASA Physical Status ASA physical status: 2 Emergency: None Planned Anesthetic General/MAC: Mask Neuraxial: Spinal Planned Pain Management Parenteral pain med Pre-operative Attestations Prior to commencing anesthesia and surgery, the patient was re-evaluated, there was verification of: *The patient's identity *The results of appropriate recent lab work and preoperative vital signs *The above evaluation not changing prior to induction *Anesthetic plan, risk benefits, alternative and complications discussed with patient/family; questions answered; patient/family understands, accepts and wishes to proceed. REYNALDO WOLF Feb 03, 2019 11:47
[2019-02-03] MEDS ORDERED: PAIN COCKTAIL - VANCOMYCIN IRR ONE ×7 (12:00)
[2019-02-03] MEDS ORDERED: MIDAZOLAM 1 MG/ML 2 ML INJ ONE (12:05)
[2019-02-03] MEDS ORDERED: PROPOFOL 100 ML ONE (12:56)
--- NOTE | 2019-02-03 12:56 | PDOCDIS ---
Discharge Instructions DIAGNOSIS Discharge Diagnosis Psoas tendinitis following total hip replacement CONDITION [id number] Patient Condition: [id number] Good HOME CARE INSTRUCTIONS: [id number] Diet Instructions: [id number] Regular ACTIVITY: [id number] Activity Restrictions: [id number] Rest between Activity Keep Limb Elevated [id number] Bathing Restrictions: [id number] Shower FOLLOW UP/APPOINTMENTS Follow-up Plan 2 weeks in the office SCHOOL/WORK RELEASE May return to School/Work with: With Restrictions School/Work Release Comment: Crutches as necessary ANDREA THORNE MD Feb 03, 2019 12:56
[2019-02-03] MEDS ORDERED: DEXAMETHASONE 4 MG/ML 5 ML INJ ONE (12:57)
[2019-02-03] MEDS ORDERED: ONDANSETRON 4 MG INJ ONE (12:57)
[2019-02-03] MEDS ORDERED: LIDOCAINE 2% (SDV) 5 ML INJ ONE (12:57)
--- NOTE | 2019-02-03 13:05 | PAC ---
Date/Time of Note Date/Time of Note DATE: 02/03/19 TIME: 13:05 Post-Anesthesia Notes Post-Anesthesia Note Last documented vital signs Vital Signs Date Temp Pulse Resp B/P (MAP) Pulse Ox O2 O2 Flow FiO2 Time Delivery Rate 02/03/19 98.3 89 16 119/60 97 Room Air 1305 (79) Activity: WNL Respiratory function: WNL Cardiovascular function: WNL Mental status: Baseline Pain reasonably controlled: Yes Hydration appropriate: Yes Nausea/Vomiting absent: Yes REYNALDO WOLF Feb 03, 2019 13:05
[2019-02-03] MEDS ORDERED: FENTAnyl 50 MCG/ML VIAL ONE (13:11)
[2019-02-03] MEDS: FENTAnyl 50 MCG/ML VIAL IV PRN ×2 (13:18→13:31)
[2019-02-03] MEDS ORDERED: EPHEDrine 25 MG/5 ML SYG IV PRN (13:30)
[2019-02-03] MEDS ORDERED: FENTAnyl 50 MCG/ML VIAL IV PRN ×2 (13:30)
[2019-02-03] MEDS ORDERED: LABETALOL HCL 20MG INJ IV PRN (13:30)
[2019-02-03] MEDS ORDERED: ALBUTEROL 0.083% (NEB) 2.5 MG/3 ML AMP HHN PRN (13:30)
[2019-02-03] MEDS ORDERED: DIPHENHYDRAMINE 50 MG INJ IV PRN (13:30)
[2019-02-03] MEDS ORDERED: METOCLOPRAMIDE 10 MG INJ IV PRN (13:30)
[2019-02-03] MEDS ORDERED: MIDAZOLAM 1 MG/ML 2 ML INJ IV PRN (13:30)
[2019-02-03] MEDS ORDERED: KETOROLAC 30 MG INJ IV PRN (13:30)
[2019-02-03] MEDS ORDERED: ONDANSETRON 4 MG INJ IV PRN (13:30)
[2019-02-03] MEDS ORDERED: hydrALAzine 20 MG INJ IV PRN (13:30)
[2019-02-03] MEDS ORDERED: OXYCODONE/ACETAMINOPHEN (5/325) TAB PO PRN ×2 (13:30)
== END 2019-02-03 15:00 | disposition home or self-care (01) ==
LOC: SDS 08:21
PROVIDERS: ATTEND Orthopaedic Surgery
DX: M76.11 Psoas tendinitis, right hip (principal); G89.29 Other chronic pain
CPT/HCPCS: 29999; 73501; J0690; J1100; J2250; J2405; J3010; 73530